=== PATIENT | male | born 1950 | race Asian ===

== ENCOUNTER → 2019-01-18 | Outpatient (CLI) | payer MEDICARE, OTHER ==
[~2019-01-18] MED LIST: LOVA20 PO
[2019-01-18 10:10] LABS: APPEARANCE,URINE CLEAR (CLEAR); BILIRUBIN,URINE NEGATIVE (NEGATIVE); GLUCOSE, URINE (UA) NEGATIVE (NEGATIVE); KETONES,URINE NEGATIVE (NEGATIVE); LEUKOCYTE ESTERASE ,URINE NEGATIVE (NEGATIVE); NITRATE,URINE NEGATIVE (NEGATIVE); OCCULT BLOOD,URINE NEGATIVE (NEGATIVE); PROTEIN,URINE NEGATIVE (NEGATIVE); UROBILINOGEN,URINE 0.2 mg/dL (<=1.0)
[2019-01-18 10:16] LABS: ALBUMIN 4.1 g/dL (3.4-5.0); BILIRUBIN,TOTAL 0.8 mg/dL (0.1-1.0); CALCIUM, TOTAL 8.9 mg/dL (8.8-10.5); CHOL/HDL RATIO 4.9 (4.2-7.3); CREATININE 1.49 mg/dL (0.60-1.30); TOTAL PROTEIN, SERUM 8.4 g/dL (6.4-8.2)
[2019-01-18 10:31] LABS: CREATININE,URINE 29.5 mg/dL (30.0-125.0); SODIUM TIMED,URINE 44 mmol/L (20-110); TPROTEIN TIMED,URINE < 6 mg/dL
[2019-01-18 10:57] LABS: COLLECTION TIME,URINE 24 HR; SODIUM URINE, 24HR CALC 132 mmol/24H (40-220); TOTAL VOLUME,CREAT CLR 3000 mL; TPROTEIN URINE, 24HRS COLL 180 mg/24Hr (0-165)
[2019-01-18 10:58] LABS: CREAT CLEARANCE/1.73sq.meter 41 ml/min (85-125); CREATININE,SERUM FOR CRCL 1.49 mg/dL (0.60-1.30)
== END | disposition home or self-care (01) ==
LOC: LABPV 07:50
PROVIDERS: ATTEND Internal Medicine Nephrology
DX: N18.3 Chronic kidney disease, stage 3 (moderate) (principal); E78.2 Mixed hyperlipidemia
CPT/HCPCS: 81050; 82575; 84156; 84300

== ENCOUNTER 2020-07-23 14:11 | Emergency (ER) | payer OTHER ==
[~2020-07-23] VITALS: Ht 157.5 cm; Wt 53.6 kg
[~2020-07-23 14:11] MED LIST changes: -LOVA20 PO; +LOVA20TA73 PO
[2020-07-23] MEDS ORDERED: ATOR10TA84 PO (14:26)
[2020-07-23] MEDS ORDERED: OMEP20 PO (14:26)
[2020-07-23] MEDS ORDERED: METH-386 PO (14:26)
[2020-07-23 15:27] LABS: APPEARANCE,URINE CLEAR (CLEAR); BILIRUBIN,URINE NEGATIVE (NEGATIVE); GLUCOSE, URINE (UA) NEGATIVE (NEGATIVE); KETONES,URINE NEGATIVE (NEGATIVE); LEUKOCYTE ESTERASE ,URINE NEGATIVE (NEGATIVE); NITRATE,URINE NEGATIVE (NEGATIVE); OCCULT BLOOD,URINE NEGATIVE (NEGATIVE); PH,URINE 5.5 (5.0-8.0); PROTEIN,URINE NEGATIVE (NEGATIVE); UROBILINOGEN,URINE 0.2 mg/dL (<=1.0)
[2020-07-23 15:38] LABS: BACTERIA,URINE None Seen /HPF (None Seen); RBC,URINE None Seen /HPF (0-2); SQUAMOUS EPITHELIAL CELL,UR None Seen /LPF (None Seen); WBC,URINE None Seen /HPF (0-5)
[2020-07-23 16:28] LABS: BASOPHILS % (AUTO) 0.4 % (0.0-2.0); EOSINOPHILS % (AUTO) 3.2 % (1.0-6.0); HEMATOCRIT 40.6 % (41-53); HEMOGLOBIN 13.5 g/dL (13.5-17.5); LYMPHOCYTES # (AUTO) 1.5 K/uL (1.0-4.8); LYMPHOCYTES % (AUTO) 18.7 % (22.0-44.0); MEAN CORPUSCULAR HEMOGLOBIN 30.4 pg (26.0-34.0); MEAN CORPUSCULAR HGB CONC 33.4 G/dL (31.0-37.0); MEAN CORPUSCULAR VOLUME 91 fL (80-100); MONOCYTES # (AUTO) 0.9 K/uL (0.1-1.0); MONOCYTES % (AUTO) 10.5 % (2.0-9.0); NEUTROPHILS # (AUTO) 5.5 K/uL (1.8-7.7); NEUTROPHILS % (AUTO) 67.2 % (40.0-70.0); PLATELET COUNT (AUTO) 212 K/uL (150-450); RED BLOOD CELL COUNT(AUTO) 4.45 MIL/uL (4.50-5.90); RED CELL DISTRIBUTION WIDTH 13.7 % (11.5-14.5)
[2020-07-23 16:37] LABS: CALCIUM, TOTAL 8.8 mg/dL (8.8-10.5); CREATININE 1.58 mg/dL (0.60-1.30); POTASSIUM 3.9 mmol/L (3.5-5.1)
[2020-07-23 17:02] LABS: BILIRUBIN,TOTAL 0.4 mg/dL (0.1-1.0); TOTAL PROTEIN, SERUM 7.7 g/dL (6.4-8.2)
[2020-07-23 18:32] VITALS: BP 127/71
== END 2020-07-23 19:13 | disposition home or self-care (01) ==
LOC: EMS 14:39
DX: R10.12 Left upper quadrant pain (principal); E78.00 Pure hypercholesterolemia, unspecified; Z79.899 Other long term (current) drug therapy; Z87.891 Personal history of nicotine dependence
CPT/HCPCS: 71045; 74176; 80053; 81001; 82550; 83690; 83880; 84484; 85025; 93005; 99285; 36415-L1; 36415-TC

== ENCOUNTER 2022-02-18 11:15 | Emergency (ER) | payer OTHER ==
[~2022-02-18] VITALS: Ht 157.5 cm; Wt 53.6 kg
[~2022-02-18 11:15] MED LIST changes: +ATOR10TA PO; -LOVA20TA73 PO; +METH-386 PO; +OMEP20 PO
[2022-02-18 11:35] LABS: COVID AG,FIA SOURCE NASAL SWAB
[2022-02-18 12:05] LABS: INFLUENZA TYPE A NEGATIVE FOR TYPE A (NEGATIVE); INFLUENZA TYPE B NEGATIVE FOR TYPE B (NEGATIVE)
[2022-02-18] MEDS ORDERED: CETI10TA58 PO (13:40)
[2022-02-18] MEDS ORDERED: SERT-438 PO (13:40)
[2022-02-18] MEDS ORDERED: CYCL1DRO14 OU (13:40)
[2022-02-18 13:41] VITALS: BP 155/77
[2022-02-18] MEDS ORDERED: ALBUTEROL SULFATE HFA 90 MCG/PUFF 8 GM INHALER IH ONE (13:45)
== END 2022-02-18 14:02 | disposition home or self-care (01) ==
LOC: EMS 11:19
DX: J20.9 Acute bronchitis, unspecified (principal); E78.00 Pure hypercholesterolemia, unspecified; Z85.9 Personal history of malignant neoplasm, unspecified; Z87.891 Personal history of nicotine dependence; Z20.822 Contact with and (suspected) exposure to COVID-19
CPT/HCPCS: 71045; 87804; 94640; 99284; J3535

== ENCOUNTER 2023-02-08 09:08 | Emergency (ER) | payer OTHER ==
[~2023-02-08] VITALS: Ht 160 cm; Wt 55.5 kg
[~2023-02-08 09:08] MED LIST changes: +CETI10TA58 PO; +CYCL1DRO14 OU; +SERT-438 PO
[2023-02-08 09:13] VITALS: BP 160/83; PULSE 107; RESP 16; TEMP 98.3
[2023-02-08] MEDS ORDERED: CHLO473M2 PO (09:14)
[2023-02-08] MEDS ORDERED: PROM118S5 PO (09:14)
[2023-02-08] MEDS ORDERED: CYCL05OE OU (09:14)
[2023-02-08] MEDS ORDERED: [UNRECOGNIZED DRUG - CODE] PO (09:14)
[2023-02-08] MEDS ORDERED: ACETAMINOPHEN 500 MG TABLET PO ONE (09:45)
[2023-02-08 09:55] LABS: COVID AG,FIA SOURCE NASAL SWAB
[2023-02-08 10:12] LABS: SARS-COV2 (COVID) ANTIGEN,FIA Negative (Negative)
[2023-02-08] MEDS ORDERED: ACET-3385 PO (10:17)
[2023-02-08] MEDS ORDERED: BENZ-227 PO (10:17)
== END 2023-02-08 10:25 | disposition home or self-care (01) ==
LOC: EMS 09:08
DX: J20.9 Acute bronchitis, unspecified (principal); M25.562 Pain in left knee; M19.90 Unspecified osteoarthritis, unspecified site; E78.00 Pure hypercholesterolemia, unspecified; Z87.891 Personal history of nicotine dependence; Z98.890 Other specified postprocedural states; Z20.822 Contact with and (suspected) exposure to COVID-19
CPT/HCPCS: 71045; 99284

== ENCOUNTER 2023-07-13 06:52 | Day surgery (SDC) | payer OTHER ==
[~2023-07-13] VITALS: Ht 158.8 cm; Wt 55.5 kg
[~2023-07-13 06:52] MED LIST changes: +ACET-3385 PO; +BENZ-227 PO; -CETI10TA58 PO; +CHLO473M2 PO; +CYCL05OE OU; -CYCL1DRO14 OU; -METH-386 PO; -OMEP20 PO; +PROM118S5 PO; -SERT-438 PO; +SODIUM CHLORIDE 0.9% 1,000 ML ONE; +[UNRECOGNIZED DRUG - CODE] PO
[2023-07-13] MEDS ORDERED: ALBUTEROL SULFATE 2.5 MG/0.5 ML NEB SOLUTION NEB ONE (06:53)
[2023-07-13] MEDS ORDERED: LIDOCAINE 2% 11 ML JELLY TP ONE (06:53)
[2023-07-13] MEDS ORDERED: LIDOCAINE 4% 50 ML SOLUTION TP ONE (06:53)
[2023-07-13] MEDS ORDERED: BENZOCAINE 20% 50 MCG/SPRAY 57 GM TP ONE (06:53)
[2023-07-13] MEDS ORDERED: MIDAZOLAM HCL 2 MG/2 ML VIAL ONE (07:22)
[2023-07-13] MEDS ORDERED: FentaNYL CITRATE PF 100 MCG/2 ML VIAL ONE (07:22)
[2023-07-13] MEDS: SODIUM CHLORIDE 0.9% 1,000 ML IV ONE (07:28)
[2023-07-13] MEDS ORDERED: CHOL25TA4 PO (07:45)
[2023-07-13] MEDS ORDERED: FLUT16H NASAL (07:45)
[2023-07-13] MEDS ORDERED: BUDE10.7 PO (07:45)
[2023-07-13] MEDS ORDERED: PRED-729 PO (07:45)
[2023-07-13] MEDS ORDERED: FAMO20 PO (07:45)
[2023-07-13] MEDS ORDERED: MONT-40 PO (07:45)
[2023-07-13] MEDS ORDERED: MECL-302 PO (07:45)
[2023-07-13] MEDS: MIDAZOLAM HCL 2 MG/2 ML VIAL IVP ONE (09:14)
[2023-07-13] MEDS: FentaNYL CITRATE PF 100 MCG/2 ML VIAL IVP ONE (09:14)
[2023-07-13] MEDS ORDERED: MethylPREDNISolone SOD SUCC 125 MG/2 ML VIAL ONE (09:18)
[2023-07-13 09:22] VITALS: PULSE 74; RESP 20; O2SAT 97
[2023-07-13] MEDS: MethylPREDNISolone SOD SUCC 125 MG/2 ML VIAL IVP ONE (10:08)
== END 2023-07-13 11:10 | disposition home or self-care (01) ==
LOC: SURGERY 06:52
PROVIDERS: ATTEND Internal Medicine Critical Care Medicine
DX: R05.3 Chronic cough (principal); J38.4 Edema of larynx; B37.0 Candidal stomatitis; J40 Bronchitis, not specified as acute or chronic; R06.2 Wheezing; R91.8 Other nonspecific abnormal finding of lung field; R06.02 Shortness of breath; E78.00 Pure hypercholesterolemia, unspecified; M19.90 Unspecified osteoarthritis, unspecified site; R42 Dizziness and giddiness; Z87.891 Personal history of nicotine dependence; Z79.899 Other long term (current) drug therapy
CPT/HCPCS: 87206; 87101; 87220; 87070; 31623; 31624; 94640; 71045; 87015; J3010; J2250; J2919; Q9967; J7030; J7613; Z7610

== ENCOUNTER 2023-11-01 10:55 | Emergency (ER) | payer OTHER ==
[~2023-11-01] VITALS: Ht 157.5 cm; Wt 55.5 kg
[~2023-11-01 10:55] MED LIST changes: -ACET-3385 PO; -BENZ-227 PO; +BUDE10.7 PO; -CHLO473M2 PO; +CHOL25TA4 PO; -CYCL05OE OU; +CYCL1DRO21 OU; +FAMO20 PO; +FLUT16H NASAL; +MECL-302 PO; +MONT-40 PO; +PRED-729 PO; -PROM118S5 PO; -SODIUM CHLORIDE 0.9% 1,000 ML ONE; -[UNRECOGNIZED DRUG - CODE] PO
[2023-11-01 11:01] VITALS: BP 127/76; PULSE 97; RESP 20; TEMP 98.5; O2SAT 100
[2023-11-01 13:14] LABS: BASOPHILS % (AUTO) 0.1 % (0.0-2.0); EOSINOPHILS % (AUTO) 0.5 % (1.0-6.0); HEMATOCRIT 46.6 % (41-53); HEMOGLOBIN 15.4 g/dL (13.5-17.5); LYMPHOCYTES # (AUTO) 1.5 K/uL (1.0-4.8); MEAN CORPUSCULAR HEMOGLOBIN 31.1 pg (26.0-34.0); MEAN CORPUSCULAR HGB CONC 33.1 G/dL (31.0-37.0); MEAN CORPUSCULAR VOLUME 94 fL (80-100); MONOCYTES % (AUTO) 10.3 % (2.0-9.0); NEUTROPHILS # (AUTO) 7.3 K/uL (1.8-7.7); NEUTROPHILS % (AUTO) 74.1 % (40.0-70.0); PLATELET COUNT (AUTO) 242 K/uL (150-450); RED BLOOD CELL COUNT(AUTO) 4.96 MIL/uL (4.50-5.90); RED CELL DISTRIBUTION WIDTH 14.1 % (11.5-14.5); WHITE BLOOD COUNT (AUTO) 9.9 K/uL (4.5-11.0)
[2023-11-01 13:30] LABS: CALCIUM, TOTAL 9.4 mg/dL (8.8-10.5); CREATININE 1.21 mg/dL (0.60-1.30); POTASSIUM 4.3 mmol/L (3.5-5.1)
[2023-11-01 14:35] LABS: ALBUMIN 4.4 g/dL (3.4-5.0); BILIRUBIN,DIRECT 0.2 mg/dL (0.00-0.20); TOTAL PROTEIN, SERUM 8.6 g/dL (6.4-8.2)
[2023-11-01] MEDS: FAMOTIDINE 20 MG/2 ML VIAL IVP ONE (14:41)
[2023-11-01] MEDS: ONDANSETRON HCL 4 MG/2 ML VIAL IVP ONE (14:41)
[2023-11-01] MEDS: ACETAMINOPHEN 500 MG TABLET PO ONE (14:42)
[2023-11-01] MEDS: KETOROLAC TROMETHAMINE 30 MG/ML VIAL IVP ONE (14:42)
[2023-11-01] MEDS ORDERED: 0.9% SODIUM CHLORIDE 10 ML SYRINGE IVP ONE (14:59)
[2023-11-01] MEDS ORDERED: IOHEXOL 300 MG/ML 100 ML VIAL ONE (15:00)
[2023-11-01] MEDS ORDERED: SODIUM CHLORIDE 0.9% 100 ML ONE (15:00)
[2023-11-01] MEDS: SODIUM CHLORIDE 0.9% 1,000 ML IV ONE (15:27)
[2023-11-01 16:13] LABS: APPEARANCE,URINE CLEAR (CLEAR); BILIRUBIN,URINE NEGATIVE (NEGATIVE); COLOR,URINE LIGHT YELLOW (YELLOW); GLUCOSE, URINE (UA) NEGATIVE (NEGATIVE); KETONES,URINE NEGATIVE (NEGATIVE); LEUKOCYTE ESTERASE ,URINE NEGATIVE (NEGATIVE); NITRATE,URINE NEGATIVE (NEGATIVE); OCCULT BLOOD,URINE NEGATIVE (NEGATIVE); PROTEIN,URINE TRACE mg/dL (NEGATIVE); UROBILINOGEN,URINE <=1.0 mg/dL (<=1.0)
[2023-11-01] MEDS ORDERED: ACET-3385 PO (17:11)
[2023-11-01] MEDS ORDERED: ONDA-104 PO (17:11)
== END 2023-11-01 17:44 | disposition home or self-care (01) ==
LOC: EMS 10:55
DX: K52.9 Noninfective gastroenteritis and colitis, unspecified (principal); R10.30 Lower abdominal pain, unspecified; R11.2 Nausea with vomiting, unspecified
CPT/HCPCS: 99285; 74177; 96374; 96375; 96361; 80048; 80076; 81003; 83690; 85025; 36415; J3490; J1885; J2405; J7030; J7050; Q9967